=== PATIENT | male | born 1980 | race Caucasian/White ===

== ENCOUNTER 2017-06-12 17:56 | Inpatient (IN) | payer OTHER ==
[2017-06-12] MEDS ORDERED: Sodium Chloride 0.9% 1,000 ML IV ONE (18:00)
[2017-06-12 18:14] VITALS: BMI 22.8
--- NOTE | 2017-06-12 19:02 | C.PDOC ---
History Of Present Illness <Sarah Everett - Last Filed: 06/12/17 21:04> <Kristen Kothari - Last Filed: 06/12/17 22:38> HPI: 37 year old male with past medical history of elevated blood pressure who presents to the ED for possible seizure. Per EMS patient was found in the back of the [employer] foaming at the mouth and urinary incontinent. Per patient he was dropping off his car at the dealership when he felt a headache and called a Lyft. He state while he was in the [employer]ft when he continued to "just not feel well". He states the last thing he remembers was taking a sip of his Gatorade and then waking up in the ambulance. He denies having seizures in the past and states this has never happened before. He denies trauma or falling. He states he currently has a minor headache on the right front side of his head and it is a 1/10. He states he currently feels like his lower extremities are cramped. He denies nausea, vomiting, chest pain, palpitations, blurry vision, dizziness, lightheadedness or fevers. He denies recent travel or sick contacts. 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 (Sarah Everett) History Per: Patient <Sarah Everett - Last Filed: 06/12/17 21:04> <Kristen Kothari - Last Filed: 06/12/17 22:38> Chief Complaint (Nursing): Altered Mental Status Past Medical History - Medical History PMH: HTN Family History: States: [place] - Social History Hx Alcohol Use: Yes Hx Substance Use: No - Immunization History Hx Tetanus Toxoid Vaccination: No Hx Influenza Vaccination: No Hx Pneumococcal Vaccination: No <Sarah Everett - Last Filed: 06/12/17 21:04> Vital Signs: Last Vital Signs Temp 98.1 F 06/12/17 17:56 Pulse 111 H 06/12/17 18:24 Resp 16 06/12/17 18:24 BP 91/59 L 06/12/17 18:24 Pulse Ox 97 06/12/17 21:06 Review Of Systems Constitutional: Positive for: Chills. Negative for: Fever Eyes: Negative for: Vision Change Cardiovascular: Negative for: Chest Pain, Palpitations, Light Headedness Respiratory: Negative for: Shortness of Breath Gastrointestinal: Negative for: Nausea, Vomiting, Diarrhea, Constipation Neurological: Positive for: Headache. Negative for: Dizziness <Elizabeth Everettyca S. - Last Filed: 06/12/17 21:04> Physical Exam - Physical Exam Appears: Non-toxic Skin: Normal Color Head: Atraumatic, Normacephalic Eye(s): bilateral: Normal Inspection, PERRL, EOMI Tongue: Bite Cardiovascular: Rhythm Regular, Other (tachycardia) Respiratory: Normal Breath Sounds, No Accessory Muscle Use, No Rales, No Rhonchi Gastrointestinal/Abdominal: Normal Exam, Bowel Sounds (normal), Soft, No Tenderness Extremity: Normal ROM, No Tenderness, No Pedal Edema, No Calf Tenderness Neurological/Psych: Oriented x3, Normal Speech, Normal Cognition, Normal Cranial Nerves, Normal Sensation <Keyla Everetta S. - Last Filed: 06/12/17 21:04> ED Course And Treatment - Laboratory Results Result Diagrams: 06/12/17 20:13 06/12/17 20:13 O2 Sat by Pulse Oximetry: 97 <Elizabeth Everettyca S. - Last Filed: 06/12/17 21:04> - Laboratory Results Result Diagrams: 06/12/17 20:13 06/12/17 20:13 Lab Interpretation: Abnormal (WBC 19.5 with 11 bands) ECG: Interpreted By La ECG Rhythm: Sinus Tachycardia ECG Interpretation: No Acute Changes Pulse Ox Interpretation: Normal - CT Scan/US CT Head Other Rad Studies (CT/US): Read By Radiologist, Radiology Report Reviewed CT/US Interpretation: Accession No. : [id number]. Patient Name / ID : BRINDA RIOS / [id number]. Exam Date : 06/12/2017 19:28:53 ( Approved ) . Study Comment : Sex / Age : M / 37Y. 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 Approver2 : Report Date : 06/12/2017 20:01:00. My Comment : . [facility] Division of Radiology. [address] [place] [address]. Tel. no. . . . Patient Name: GABRIEL PARRY . Pt. Address: [address] [place] [address]. Rec #: [id number]. [place] [address]: Sarah Everett Pt Order Location: [facility] : 1980 Male Age: 37 Order #: [id number]. Accession # : [id number]. Reason for exam: new onset seizure. . . . . . CT Scan. . . HEAD W/O CONTRAST Exam Date: 06/12/17. . This imaging exam was performed at [facility]. EXAM: CT Head Without Intravenous Contrast. . EXAM DATE/TIME: 06/12/2017 7:05 PM. . CLINICAL HISTORY: 37 years old, male; Signs and symptoms; Altered mental status/memory loss;. Additional info: New onset seizure. . TECHNIQUE: Axial computed tomography images of the head/brain without intravenous. contrast. All CT scans at this facility use one or more dose reduction. techniques, viz.: automated exposure control; ma/kV adjustment per patient size. (including targeted exams where dose is matched to indication; i.e. head); or. iterative reconstruction technique. . COMPARISON: There are no prior studies for comparison. . FINDINGS: Brain: Ventricles are normal in size and configuration. There is no midline. shift. There are no intra-axial or extra- axial mass lesions or areas of. hemorrhage. There are no abnormal fluid collections. Tavares-white differentiation. is maintained. Ventricles: See above. Bones: Cranial vault is intact. Soft tissues: unremarkable. Sinuses: There is sinusitis. There are air-fluid levels in right frontal,. right maxillary and left sphenoid sinuses. There is partial opacification of. ethmoid air cells. Ears and mastoids: Middle ears and mastoids are unremarkable. Orbits: Orbital contents are unremarkable. . IMPRESSION: No acute intracranial abnormality; sinusitis. . Dictated By: Mark Viera MD., MD. Dictated Date/Time: 06/12/172000. Signed By: Mark Chadwick MD. Date Signed: 06/12/172000. Transcribed By: MEDREC. Transcribe Date/Time: 06/12/172000. RUDY/FRITZ Reevaluation Time: 22:37 Reassessment Condition: Improved - Physician Consult Information Time Consulting Physician Contacted: 22:37 Physician Contacted: Filippo Fernandez Outcome Of Conversation: Patient to be admitted for 1st time seizure. <Kristen Kothari - Last Filed: 06/12/17 22:38> Medical Decision Making <Sarah Everett - Last Filed: 06/12/17 21:04> <Kristen Kothari - Last Filed: 06/12/17 22:38> Medical Decision Making: New Onset Seizure - head CT: No acute intracranial abnormality - EKG: Tachycardia NSR - WBC: 19.5 - cmp: WNL - UDS: Negative - serum alcohol: Negative (Sarah Everett) Disposition Discussed With : Kristen Kothari Doctor Will See Patient In The: ED - Disposition Disposition Time: 21:05 <Sarah Everett - Last Filed: 06/12/17 21:04> - POA Present On Arrival: None <Kristen Kothari - Last Filed: 06/12/17 22:38> - Disposition Disposition: HOSPITALIZED Condition: FAIR - Clinical Impression Clinical Impression: Seizure - 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 IVETT has examined the patient and agrees with the treatment plan. <Sarah Everett - Last Filed: 06/12/17 21:04>
--- NOTE | 2017-06-12 20:01 | CT ---
EXAM: CT Head Without Intravenous Contrast EXAM DATE/TIME: 06/12/2017 7:05 PM CLINICAL HISTORY: 37 years old, male; Signs and symptoms; Altered mental status/memory loss; Additional info: New onset seizure TECHNIQUE: Axial computed tomography images of the head/brain without intravenous contrast. All CT scans at this facility use one or more dose reduction techniques, viz.: automated exposure control; ma/kV adjustment per patient size (including targeted exams where dose is matched to indication; i.e. head); or iterative reconstruction technique. COMPARISON: There are no prior studies for comparison. FINDINGS: Brain: Ventricles are normal in size and configuration. There is no midline shift. There are no intra-axial or extra-axial mass lesions or areas of hemorrhage. There are no abnormal fluid collections. Tavaers-white differentiation is maintained. Ventricles: See above. Bones: Cranial vault is intact. Soft tissues: unremarkable Sinuses: There is sinusitis. There are air-fluid levels in right frontal, right maxillary and left sphenoid sinuses. There is partial opacification of ethmoid air cells. Ears and mastoids: Middle ears and mastoids are unremarkable Orbits: Orbital contents are unremarkable. IMPRESSION: No acute intracranial abnormality; sinusitis
[2017-06-12 20:18] LABS: BASO % 0.2 % (0.0-2.0); EOS # 0.1 K/uL (0.0-0.7); EOS % 0.5 % (0.0-4.0); HEMOGLOBIN 13.6 g/dL (12.0-18.0); MEAN CELL VOLUME 84.9 fL (80.0-94.0); MEAN CORPUSCULAR HEMOGLOBIN 29.7 pg (27.0-31.0); MEAN CORPUSCULAR HGB CONC 34.9 g/dL (33.0-37.0); MEAN PLATELET VOLUME 8.2 fL (7.2-11.7); MONO % 10.1 % (0.0-10.0); NEUT # 16.5 K/uL (1.8-7.0); NEUT % 84.2 % (50.0-75.0); PLATELET COUNT 277 K/uL (130-400); WHITE BLOOD COUNT 19.5 K/uL (4.8-10.8)
[2017-06-12 20:33] LABS: CALCIUM 8.6 mg/dl (8.6-10.4); GFR AFRICAN-AMERICAN > 60; GFR NON-AFRICAN AMERICAN > 60
[2017-06-12 20:34] LABS: ALB/GLOB RATIO 1.3 (1.0-2.1); ALBUMIN 3.9 g/dL (3.5-5.0); ALT/SGPT 16 U/L (21-72); AST/SGOT 33 U/L (17-59); BARBITURATES, UR NEGATIVE (NEGATIVE); BENZODIAZEPINES, UR NEGATIVE (NEGATIVE); BLOOD UREA NITROGEN 13 mg/dL (9-20); OPIATES, UR NEGATIVE (NEGATIVE); PHENCYCLIDINE, UR NEGATIVE (NEGATIVE)
[2017-06-12 21:54] LABS: BANDS 18 % (0-2); EOSINOPHIL 1 % (0-4); LYMPHOCYTE 5 % (20-40); MONOCYTE 15 % (0-10); NEUTROPHIL 61 % (50-75); PLATELET ESTIMATE NORMAL (NORMAL); TOTAL CELLS COUNTED 100
[2017-06-12 21:55] LABS: LARGE PLATELETS PRESENT
--- NOTE | 2017-06-13 01:13 | CP.PCM.HP ---
History of Present Illness - History of Present Illness History of Present Illness: HPI: 37 year old male with past medical history of elevated blood pressure who presents to the ED for possible seizure. Per EMS patient was found in the back of the [employer] foaming at the mouth and urinary incontinent. Per patient he was dropping off his car at the dealership when he felt a headache and called a Lyft. He state while he was in the Lyft when he continued to "just not feel well". He states the last thing he remembers was taking a sip of his Gatorade and then waking up in the ambulance. He denies having seizures in the past and states this has never happened before. He denies trauma or falling. He states he currently has a minor headache on the right front side of his head and it is a 1/10. He states he currently feels like his lower extremities are cramped. He denies nausea, vomiting, chest pain, palpitations, blurry vision, dizziness, lightheadedness or fevers. He denies recent travel or sick contacts. 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 Present on Admission - Present on Admission Any Indicators Present on Admission: Yes Review of Systems - Review of Systems Systems not reviewed;Unavailable: Acuity of Condition, Intoxicated - Constitutional Constitutional: Fatigue, Lethargy, Malaise - Neurological Neurological: Abnormal Movements - Psychiatric Psychiatric: absent: As Per HPI, Abnormal Sleep Pattern, Anhedonia, Anxiety, Auditory Hallucinations, Behavioral Changes, Change in Appetite, Change in Libido, Confusion, Depression, Difficulty Concentrating, Hallucinations, Homicidal Ideation, Hopelessness, Irritability, Memory Loss, Mood Swings, Panic Attacks, Paranoia, Suicidal Ideation, Visual Hallucinations, Tactile Hallucinations, Other Past Patient History - Past Social History Smoking Status: Light Smoker < 10 Cigarettes Daily - CARDIAC Hx Hypertension: Yes - PSYCHIATRIC Hx Substance Use: No - SURGICAL HISTORY Hx Surgeries: No - ANESTHESIA Hx Anesthesia: No Meds Allergies/Adverse Reactions: Allergies Allergy/AdvReac Type Severity Reaction Status Date / Time NUTS Allergy Uncoded 06/12/17 18:09 Physical Exam - Constitutional Appears: No Acute Distress - Head Exam Head Exam: ATRAUMATIC, NORMAL INSPECTION, NORMOCEPHALIC - Eye Exam Eye Exam: EOMI, Normal appearance, PERRL Pupil Exam: NORMAL ACCOMODATION, PERRL - Respiratory Exam Respiratory Exam: Clear to Auscultation Bilateral, NORMAL BREATHING PATTERN - Cardiovascular Exam Cardiovascular Exam: REGULAR RHYTHM - GI/Abdominal Exam GI & Abdominal Exam: Normal Bowel Sounds, Soft. absent: Tenderness Results - Vital Signs Recent Vital Signs: Last Vital Signs Temp 98 F 06/12/17 23:15 Pulse 81 06/12/17 23:15 Resp 20 06/12/17 23:15 BP 98/66 L 06/12/17 23:15 Pulse Ox 98 06/12/17 23:15 - Labs Result Diagrams: 06/13/17 11:31 06/13/17 11:31 Labs: Laboratory Results - last 24 hr 06/12/17 06/12/17 06/12/17 18:05 20:13 20:13 WBC 19.5 H RBC 4.60 Hgb 13.6 Hct 39.1 MCV 84.9 MCH 29.7 MCHC 34.9 RDW 13.0 Plt Count 277 MPV 8.2 Neut % (Auto) 84.2 H Lymph % (Auto) 5.0 L Braxton % (Auto) 10.1 H Eos % (Auto) 0.5 Baso % (Auto) 0.2 Neut # (Auto) 16.5 H Lymph # (Auto) 1.0 Braxton # (Auto) 2.0 H Eos # (Auto) 0.1 Baso # (Auto) 0.0 Neutrophils % (Manual) 61 Band Neutrophils % 18 H* Lymphocytes % (Manual) 5 L Monocytes % (Manual) 15 H Eosinophils % (Manual) 1 Platelet Estimate Normal Large Platelets Present Sodium 134 Potassium 4.7 Chloride 100 Carbon Dioxide 27 Anion Gap 12 BUN 13 Creatinine 1.2 Est GFR ( Amer) > 60 Est GFR (Non-Af Amer) > 60 POC Glucose (mg/dL) 219 H Random Glucose 135 H Calcium 8.6 Total Bilirubin 0.5 AST 33 ALT 16 L Alkaline Phosphatase 47 Total Protein 6.8 Albumin 3.9 Globulin 3.0 Albumin/Globulin Ratio 1.3 Urine Opiates Screen Urine Methadone Screen Ur Barbiturates Screen Ur Phencyclidine Scrn Ur Amphetamines Screen U Benzodiazepines Scrn U Oth Cocaine Metabols U Cannabinoids Screen Alcohol, Quantitative < 10 06/12/17 20:13 WBC RBC Hgb Hct MCV MCH MCHC RDW Plt Count MPV Neut % (Auto) Lymph % (Auto) Braxton % (Auto) Eos % (Auto) Baso % (Auto) Neut # (Auto) Lymph # (Auto) Braxton # (Auto) Eos # (Auto) Baso # (Auto) Neutrophils % (Manual) Band Neutrophils % Lymphocytes % (Manual) Monocytes % (Manual) Eosinophils % (Manual) Platelet Estimate Large Platelets Sodium Potassium Chloride Carbon Dioxide Anion Gap BUN Creatinine Est GFR ( Amer) Est GFR (Non-Af Amer) POC Glucose (mg/dL) Random Glucose Calcium Total Bilirubin AST ALT Alkaline Phosphatase Total Protein Albumin Globulin Albumin/Globulin Ratio Urine Opiates Screen Negative Urine Methadone Screen Negative Ur Barbiturates Screen Negative Ur Phencyclidine Scrn Negative Ur Amphetamines Screen Negative U Benzodiazepines Scrn Negative U Oth Cocaine Metabols Negative U Cannabinoids Screen Negative Alcohol, Quantitative Assessment & Plan (1) Seizure Status: Acute (2) Alcoholic Status: Acute
[2017-06-13] MEDS: Dextrose 5%/0.45% NS 1,000 ML IV SCH ×2 (02:35→12:45)
[2017-06-13] MEDS ORDERED: levETIRAcetam 500 MG in Sodium Chloride 0.9% 100 ML IVPB SCH (03:00)
[2017-06-13 03:01] LABS: BARBITURATES, UR NEGATIVE (NEGATIVE); BENZODIAZEPINES, UR NEGATIVE (NEGATIVE); OPIATES, UR NEGATIVE (NEGATIVE); PHENCYCLIDINE, UR NEGATIVE (NEGATIVE)
[2017-06-13] MEDS ORDERED: levETIRAcetam 1,000 MG in Sodium Chloride 0.9% 100 ML IVPB STA (03:02)
[2017-06-13] MEDS ORDERED: Pneumococcal 23-Valent Vaccine IM ONE ×2 (06:59→10:00)
[2017-06-13 09:13] VITALS: RESP 20
[2017-06-13] MEDS ORDERED: Influenza Vaccine 60 mcg/0.5 mL SYR (4YR UP) IM ONE (10:00)
[2017-06-13 11:45] LABS: BASO # 0.1 K/uL (0.0-0.2); BASO % 0.5 % (0.0-2.0); EOS # 0.5 K/uL (0.0-0.7); EOS % 4.6 % (0.0-4.0); HEMOGLOBIN 13.6 g/dL (12.0-18.0); LYMPH # 1.8 K/uL (1.0-4.3); LYMPH % 16.4 % (20.0-40.0); MEAN CELL VOLUME 85.2 fL (80.0-94.0); MEAN CORPUSCULAR HGB CONC 35.2 g/dL (33.0-37.0); MEAN PLATELET VOLUME 8.2 fL (7.2-11.7); MONO # 0.7 K/uL (0.0-0.8); MONO % 6.7 % (0.0-10.0); NEUT # 7.8 K/uL (1.8-7.0); NEUT % 71.8 % (50.0-75.0); RBC 4.55 Mil/uL (4.40-5.90); RED CELL DISTRIBUTION WIDTH 13.2 % (11.5-14.5); WHITE BLOOD COUNT 10.9 K/uL (4.8-10.8)
[2017-06-13 11:56] LABS: BLOOD UREA NITROGEN 9 mg/dL (9-20); GFR AFRICAN-AMERICAN > 60; GFR NON-AFRICAN AMERICAN > 60
[2017-06-13 11:57] LABS: CALCIUM 9.1 mg/dl (8.6-10.4)
[2017-06-13] MEDS ORDERED: Gadodiamide 287 mg/ml 20 ml IV ONE (18:05)
--- NOTE | 2017-06-13 18:51 | MRI ---
PROCEDURE: MRI BRAIN WITH AND WITHOUT CONTRAST HISTORY: Seizure COMPARISON: Noncontrast head CT from 06/12/2017. TECHNIQUE: Multiplanar, multisequence MR images of the brain were obtained with and without intravenous contrast enhancement. 12 mL Omniscan was injected intravenously FINDINGS: HEMORRHAGE: None DWI: No evidence of an acute or early subacute infarction. BRAIN PARENCHYMA: Tavares-white matter differentiation is preserved. There is no mass, mass effect or abnormal extra-axial fluid collection. The midline sagittal structures are normal. The hippocampi by are symmetric with normal signal intensity. No evidence for mesial temporal sclerosis. ENHANCEMENT: No abnormal intracranial enhancement. VENTRICLES: The ventricles are normal in size, shape and configuration. CRANIUM: There is normal bone marrow signal pattern. ORBITS: Grossly unremarkable. PARANASAL SINUSES/MASTOIDS: There is severe polypoid mucosal thickening in the maxillary sinuses and left sphenoid chamber and moderate polypoid mucosal thickening in the ethmoidal air cells and right frontal sinus. VASCULAR SYSTEM: Skull base flow voids intact. OTHER FINDINGS: None . IMPRESSION: 1. No acute abdominal or pelvic abnormality. Specifically, no evidence for mesial temporal sclerosis. 2. Chronic pansinusitis, worse in the maxillary sinuses.
--- NOTE | 2017-06-13 19:55 | CP.PCM.PN ---
Subjective - Date & Time of Evaluation Date of Evaluation: 06/13/17 Time of Evaluation: 19:50 - Subjective Subjective: pt seen and examined today, pt is stated on keppra on medical management and neurology eval Objective - Vital Signs/Intake and Output Vital Signs (last 24 hours): Temp Pulse Resp BP Pulse Ox 97.9 F 62 20 124/79 96 06/13/17 15:29 06/13/17 16:47 06/13/17 15:29 06/13/17 16:47 06/13/17 16:47 Intake and Output: 06/13/17 06/14/17 18:59 06:59 Intake Total 1160 Balance 1160 - Medications Medications: Current Medications Dextrose/Sodium Chloride (Dextrose 5%/0.45% Ns 1000 Ml) 1,000 mls @ 100 mls/hr IV .Q10H RANDALL Last Admin: 06/13/17 12:45 Dose: 100 mls/hr - Labs Labs: 06/13/17 11:31 06/13/17 11:31 - Constitutional Appears: No Acute Distress - Head Exam Head Exam: ATRAUMATIC, NORMAL INSPECTION, NORMOCEPHALIC - Eye Exam Eye Exam: EOMI, Normal appearance, PERRL Pupil Exam: NORMAL ACCOMODATION, PERRL - Respiratory Exam Respiratory Exam: Clear to Ausculation Bilateral, NORMAL BREATHING PATTERN - Cardiovascular Exam Cardiovascular Exam: REGULAR RHYTHM, +S1, +S2. absent: Murmur - GI/Abdominal Exam GI & Abdominal Exam: Soft, Normal Bowel Sounds. absent: Tenderness - Neurological Exam Neurological Exam: Alert, Awake, CN II-XII Intact, Normal Gait, Oriented x3 - Psychiatric Exam Psychiatric exam: Normal Affect, Normal Mood Assessment and Plan (1) Alcoholic Status: Acute (2) Seizure Status: Acute
--- NOTE | 2017-06-14 07:47 | CP.PCM.PN ---
Subjective - Date & Time of Evaluation Date of Evaluation: 06/14/17 Time of Evaluation: 07:44 - Subjective Subjective: MR. Leigh was seen and examined at the bedside. He is alert, oriented in all spheres. He is able to answer all questions appropriately and follow simple commands. He denies any headache, dizziness, lightheadedness, nausea, or vomiting. MRI of the brain 06/13/2017 showed chronic pansinusitis worse in the maxillary sinuses. He refused reinsertion of his IV.There was no untoward events overnight. Objective - Vital Signs/Intake and Output Vital Signs (last 24 hours): Temp Pulse Resp BP Pulse Ox 98.5 F 66 20 109/70 96 06/14/17 00:00 06/14/17 00:00 06/14/17 00:00 06/14/17 00:00 06/14/17 00:00 Intake and Output: 06/14/17 06/14/17 06:59 18:59 Intake Total 900 Balance 900 - Medications Medications: Current Medications Dextrose/Sodium Chloride (Dextrose 5%/0.45% Ns 1000 Ml) 1,000 mls @ 100 mls/hr IV .Q10H RANDALL Last Admin: 06/13/17 12:45 Dose: 100 mls/hr - Labs Labs: 06/13/17 11:31 06/13/17 11:31 - Constitutional Appears: No Acute Distress - Head Exam Head Exam: NORMAL INSPECTION - Neurological Exam Neurological Exam: Alert, Awake, Oriented x3 Neuro motor strength exam: Left Upper Extremity: 5, Right Upper Extremity: 5, Left Lower Extremity: 5, Right Lower Extremity: 5 Additional comments: He is able to follow simple commands. Sensation remains intact. Assessment and Plan (1) Seizure Assessment & Plan: Case discussed with Dr. Lam, continue all current medical regimen. Pending EEG result. Recommend echocardiogram and carotid doppler. Status: Acute
[2017-06-14 11:52] VITALS: BP 121/78; PULSE 70; TEMP 98.4; O2SAT 97
--- NOTE | 2017-06-14 13:20 | CARD ---
APPROVED REPORT EKG Measurement Heart [id number] <Conclusion> Sinus tachycardia Otherwise normal ECG
--- NOTE | 2017-06-14 16:01 | CP.PCM.PN ---
Subjective - Date & Time of Evaluation Date of Evaluation: 06/14/17 Time of Evaluation: 15:58 - Subjective Subjective: PT SEEN BY DR. SPARKS, NEURO, AND CLEARED FOR D/C HOME TODAY. I DISCUSSED D/C PLAN WITH DR. SPARKS AT LENGTH; PT TO BE GIVEN RX FOR LUNESTA AND IS ENCOURAGED TO DECREASE OR STOP HIS ETOH INTAKE. HE WILL F/U WITH DR. ARREAGA IN THE OFFICE WITHIN 7-[address] GONZALES WITHIN 7 DAYS. PT VERBALIZES UNDERSTANDING OF D/C PLAN AND MED RX. NO FURTHER ORDERS. -FOLLOW UP WITH DR. GONZALES IN HIS OFFICE WITHIN 7 DAYS OF DISCHARGE---CALL THE OFFICE ON SATURDAY TO MAKE YOUR APPOINTMENT. -FOLLOW UP WITH DR. ARREAGA (NEUROLOGIST) IN HIS OFFICE WITHIN 7-10 DAYS OF DISCHARGE---CALL THE OFFICE ON SATURDAY TO MAKE YOUR APPOINTMENT. -DECREASE OR STOP YOUR ALCOHOL INTAKE. 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 ONLY TAKE AT BEDTIME IF YOU HAVE TROUBLE SLEEPING AND TAKE EXACTLY PRESCRIBED. FOR REFILLS, CONTACT YOUR PRIMARY PROVIDER. -FOR FURTHER QUESTIONS OR CONCERNS, CONTACT DR. GONZALES'S OFFICE. Objective - Vital Signs/Intake and Output Vital Signs (last 24 hours): Temp Pulse Resp BP Pulse Ox 98.4 F 70 20 121/78 97 06/14/17 08:00 06/14/17 08:00 06/14/17 08:00 06/14/17 08:00 06/14/17 08:00 Intake and Output: 06/14/17 06/14/17 06:59 18:59 Intake Total 900 360 Balance 900 360 - Medications Medications: Current Medications Dextrose/Sodium Chloride (Dextrose 5%/0.45% Ns 1000 Ml) 1,000 mls @ 100 mls/hr IV .Q10H RANDALL Last Admin: 06/13/17 12:45 Dose: 100 mls/hr - Labs Labs: 06/13/17 11:31 06/13/17 11:31
--- NOTE | 2017-06-14 23:21 | CP.PCM.DIS ---
Provider - Provider Date of Admission: 06/12/17 22:38 Attending physician: Filippo Fernandez MD Time Spent in preparation of Discharge (in minutes): 34 Diagnosis - Discharge Diagnosis (1) Alcoholic Status: Acute (2) Seizure Status: Acute Hospital Course - Lab Results Lab Results: Most Recent Lab Values WBC 10.9 K/uL (4.8-10.8) H 06/13/17 11:31 RBC 4.55 Mil/uL (4.40-5.90) 06/13/17 11:31 Hgb 13.6 g/dL (12.0-18.0) 06/13/17 11:31 Hct 38.7 % (35.0-51.0) 06/13/17 11:31 MCV 85.2 fL (80.0-94.0) 06/13/17 11:31 MCH 30.0 pg (27.0-31.0) 06/13/17 11:31 MCHC 35.2 g/dL (33.0-37.0) 06/13/17 11:31 RDW 13.2 % (11.5-14.5) 06/13/17 11:31 Plt Count 293 K/uL (130-400) 06/13/17 11:31 MPV 8.2 fL (7.2-11.7) 06/13/17 11:31 Neut % (Auto) 71.8 % (50.0-75.0) 06/13/17 11:31 Lymph % (Auto) 16.4 % (20.0-40.0) L 06/13/17 11:31 [place] % (Auto) 6.7 % (0.0-10.0) 06/13/17 11:31 Eos % (Auto) 4.6 % (0.0-4.0) H 06/13/17 11:31 Baso % (Auto) 0.5 % (0.0-2.0) 06/13/17 11:31 Neut # (Auto) 7.8 K/uL (1.8-7.0) H 06/13/17 11:31 Lymph # (Auto) 1.8 K/uL (1.0-4.3) 06/13/17 11:31 [place] # (Auto) 0.7 K/uL (0.0-0.8) 06/13/17 11:31 Eos # (Auto) 0.5 K/uL (0.0-0.7) 06/13/17 11:31 Baso # (Auto) 0.1 K/uL (0.0-0.2) 06/13/17 11:31 Neutrophils % (Manual) 61 % (50-75) 06/12/17 20:13 Band Neutrophils % 18 % (0-2) H* 06/12/17 20:13 Lymphocytes % (Manual) 5 % (20-40) L 06/12/17 20:13 Monocytes % (Manual) 15 % (0-10) H 06/12/17 20:13 Eosinophils % (Manual) 1 % (0-4) 06/12/17 20:13 Platelet Estimate Normal (NORMAL) 06/12/17 20:13 Large Platelets Present 06/12/17 20:13 Sodium 138 mmol/L (132-148) 06/13/17 11:31 Potassium 4.1 mmol/L (3.6-5.2) 06/13/17 11:31 Chloride 100 mmol/L (98-107) 06/13/17 11:31 Carbon Dioxide 28 mmol/L (22-30) 06/13/17 11:31 Anion Gap 13 (10-20) 06/13/17 11:31 BUN 9 mg/dL (9-20) 06/13/17 11:31 Creatinine 1.0 mg/dL (0.8-1.5) 06/13/17 11:31 Est GFR ( Amer) > 60 06/13/17 11:31 Est GFR (Non-Af Amer) > 60 06/13/17 11:31 POC Glucose (mg/dL) 219 mg/dL (65-110) H 06/12/17 18:05 Random Glucose 117 mg/dL (75-110) H 06/13/17 11:31 Calcium 9.1 mg/dl (8.6-10.4) 06/13/17 11:31 Total Bilirubin 0.5 mg/dL (0.2-1.3) 06/12/17 20:13 AST 33 U/L (17-59) 06/12/17 20:13 ALT 16 U/L (21-72) L 06/12/17 20:13 Alkaline Phosphatase 47 U/L (38-126) 06/12/17 20:13 Total Protein 6.8 g/dL (6.3-8.3) 06/12/17 20:13 Albumin 3.9 g/dL (3.5-5.0) 06/12/17 20:13 Globulin 3.0 gm/dL (2.2-3.9) 06/12/17 20:13 Albumin/Globulin Ratio 1.3 (1.0-2.1) 06/12/17 20:13 Urine Opiates Screen Negative (NEGATIVE) 06/13/17 02:41 Urine Methadone Screen Negative (NEGATIVE) 06/13/17 02:41 Ur Barbiturates Screen Negative (NEGATIVE) 06/13/17 02:41 Ur Phencyclidine Scrn Negative (NEGATIVE) 06/13/17 02:41 Ur Amphetamines Screen Negative (NEGATIVE) 06/13/17 02:41 U Benzodiazepines Scrn Negative (NEGATIVE) 06/13/17 02:41 U Oth Cocaine Metabols Negative (NEGATIVE) 06/13/17 02:41 U Cannabinoids Screen Negative (NEGATIVE) 06/13/17 02:41 Alcohol, Quantitative < 10 mg/dl (0-10) 06/12/17 20:13 - Hospital Course Hospital Course: PT SEEN AND EXAMINED I YAKELIN FREE ALSO SEEN BY DR. LAM, NEURO, AND CLEARED FOR D/C HOME TODAY. I DISCUSSED D/C PLAN WITH DR. LAM AT LENGTH; PT TO BE GIVEN RX FOR LUNESTA AND IS ENCOURAGED TO DECREASE OR STOP HIS ETOH INTAKE. HE WILL F/U WITH DR. ARREAGA IN THE OFFICE WITHIN 7-10 DAYS AND WITH ME WITHIN 7 DAYS. PT VERBALIZES UNDERSTANDING OF D/C PLAN AND MED RX. NO FURTHER ORDERS. -FOLLOW UP WITH ME IN HIS OFFICE WITHIN 7 DAYS OF DISCHARGE---CALL THE OFFICE ON SATURDAY TO MAKE YOUR APPOINTMENT. -FOLLOW UP WITH DR. ARREAGA (NEUROLOGIST) IN HIS OFFICE WITHIN 7-10 DAYS OF DISCHARGE---CALL THE OFFICE ON SATURDAY TO MAKE YOUR APPOINTMENT. -DECREASE OR STOP YOUR ALCOHOL INTAKE. 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 ONLY TAKE AT BEDTIME IF YOU HAVE TROUBLE SLEEPING AND TAKE EXACTLY PRESCRIBED. FOR REFILLS, CONTACT YOUR PRIMARY PROVIDER. -FOR FURTHER QUESTIONS OR CONCERNS, CONTACT DR. FERNANDEZ'S OFFICE. Discharge Exam - Head Exam Head Exam: NORMAL INSPECTION - Eye Exam Eye Exam: Normal appearance - Respiratory Exam Respiratory Exam: Clear to PA & Lateral, NORMAL BREATHING PATTERN - Cardiovascular Exam Cardiovascular Exam: REGULAR RHYTHM, +S1, +S2 - GI/Abdominal Exam GI & Abdominal Exam: Normal Bowel Sounds - Rectal Exam Rectal Exam: Deferred - Neurological Exam Neurological exam: Alert, CN II-XII Intact, Normal Gait, Oriented x3, Reflexes Normal - Psychiatric Exam Psychiatric exam: Normal Affect, Normal Mood Discharge Plan - Discharge Medications Prescriptions: Eszopiclone [Lunesta] 2 mg PO HS PRN #7 tablet PRN Reason: Insomnia - Follow Up Plan Condition: FAIR Disposition: HOME/ ROUTINE Instructions: Seizures, Adult (DC), Alcohol Abuse and Alcoholism (DC), Eszopiclone Additional Instructions: -FOLLOW UP WITH DR. FERNANDEZ IN HIS OFFICE WITHIN 7 DAYS OF DISCHARGE---CALL THE OFFICE ON SATURDAY TO MAKE YOUR APPOINTMENT. -FOLLOW UP WITH DR. ARREAGA (NEUROLOGIST) IN HIS OFFICE WITHIN 7-10 DAYS OF DISCHARGE---CALL THE OFFICE ON SATURDAY TO MAKE YOUR APPOINTMENT. -DECREASE OR STOP YOUR ALCOHOL INTAKE. 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 ONLY TAKE AT BEDTIME IF YOU HAVE TROUBLE SLEEPING AND TAKE EXACTLY PRESCRIBED. FOR REFILLS, CONTACT YOUR PRIMARY PROVIDER. -FOR FURTHER QUESTIONS OR CONCERNS, CONTACT DR. FERNANDEZ'S OFFICE. MAY CALL [facility] FOR A COPY OF YOUR CHART; THEY ARE OPEN SAT-SAT FROM 8AM-4PM-----[phone]. Referrals: Reji Arreaga MD [Staff Provider] - Filippo Fernandez MD [Staff Provider] - Vasquez Lam MD [Staff Provider] -
--- NOTE | 2017-06-17 11:57 | VASCLAB ---
PROCEDURE: HISTORY: syncope COMPARISON: None available. TECHNIQUE: Grayscale and duplex Doppler evaluation of the cervical carotid and vertebral arteries were performed. The common carotid, carotid bifurcations and cervical Internal Carotid Artery (ICA) and proximal External Carotid Artery (ECA) were evaluated. The vertebral arteries were evaluated for gross patency and flow direction. Report prepared by Bennie Worley, BS, RVT FINDINGS: RIGHT CAROTID ARTERIES: 1. Common Carotid Artery: No significant focal plaque formation of the right common carotid artery. Maximum Peak Systolic velocity: 92 cm/sec: End-diastolic velocity 24 cm/sec. 2. Carotid Bifurcation: plaque formation. Maximum Peak Systolic velocity: 82 cm/sec: End-diastolic velocity 21 cm/sec. 3. Internal Carotid Artery: Plaque description: 3.1. Proximal Segment: Peak systolic velocity 91 cm/sec: End-diastolic velocity 23 cm/sec - % stenosis 0-15% 3.2. Middle Segment: Peak systolic velocity 76 cm/sec: End-diastolic velocity 33 cm/sec - % stenosis 0-15% 3.3. Distal Segment: Peak systolic velocity 94 cm/sec: End-diastolic velocity 35 cm/sec - % stenosis 0-15% 4. External Carotid Artery: No significant focal plaque formation. Peak systolic velocity 117 cm/sec 5. ICA/CCA Ratio: 1.0 LEFT CAROTID ARTERIES: 1. Common Carotid Artery: No significant focal plaque formation of the left common carotid artery. Maximum Peak Systolic velocity: 96 cm/sec: End-diastolic velocity 17 cm/sec. 2. Carotid Bifurcation: plaque formation. Maximum Peak Systolic velocity: 94 cm/sec: End-diastolic velocity 18 cm/sec. 3. Internal Carotid Artery: Plaque description: 3.1. Proximal Segment: Peak systolic velocity 72 cm/sec: End-diastolic velocity 25 cm/sec - % stenosis 0-15% 3.2. Middle Segment: Peak systolic velocity 56 cm/sec: End-diastolic velocity 19 cm/sec - % stenosis 0-15% 3.3. Distal Segment: Peak systolic velocity 78 cm/sec: End-diastolic velocity 20 cm/sec - % stenosis 0-15% 4. External Carotid Artery: No significant focal plaque formation. Peak systolic velocity 104 cm/sec 5. ICA/CCA Ratio: 1.0 VERTEBRAL ARTERIES: 1. Right Vertebral Artery: The right vertebral artery flow direction is antegrade. 2. Left Vertebral Artery: The left vertebral artery flow direction is antegrade. OTHER FINDINGS: 1. Right Brachial Blood pressure: 126 mmHg. 2. Left Brachial Blood pressure: 122 mmHg. IMPRESSION: RIGHT: Duplex scan does not suggest hemodynamically significant stenosis of the right extracranial carotid arteries. LEFT: Duplex scan does not suggest hemodynamically significant stenosis of the left extracranial carotid arteries.
== END 2017-06-14 17:32 | disposition home or self-care (01) | DRG 101 ==
LOC: C.ER 17:56 → C.9E 22:38 → C.3T 06-13 04:50
PROVIDERS: ADMIT Internal Medicine; ATTEND Internal Medicine
DX: R56.9 Unspecified convulsions (principal); F10.20 Alcohol dependence, uncomplicated; F17.210 Nicotine dependence, cigarettes, uncomplicated; I10 Essential (primary) hypertension; R32 Unspecified urinary incontinence; Z87.19 Personal history of other diseases of the digestive system; Y90.0 Blood alcohol level of less than 20 mg/100 ml